=== PATIENT | female | born 1990 | race Hispanic/Latino ===

== ENCOUNTER 2018-12-22 23:49 | Emergency (ER) | payer BC ==
[2018-12-23 00:10] VITALS: TEMP 98.7
[2018-12-23] MEDS ORDERED: Albuterol-Ipratrop 3 mg / 0.5 (3 ml) UD IH STA (00:49)
--- NOTE | 2018-12-23 00:51 | ED PDOC ---
HPI: Chest Pain Time Seen by Provider: 12/23/18 00:23 Chief Complaint (Nursing): Chest Pain Chief Complaint (Provider): chest pain History Per: Patient History/Exam Limitations: no limitations Onset/Duration Of Symptoms: Days (2) Current Symptoms Are (Timing): Still Present Quality: Tightness Exacerbating Factors: Deep Breathing Additional Complaint(s): 28 y/o female presents for evaluation of chest tightness x 2 days. Associated palpitations, shortness of breath, and mild dry cough. Patient denies fever, nausae/vomiting, nasal congestion, leg pain/swelling. +OCP use. +recent flight from [place] 12/14. Patient states chest tightness new for her, which prompted ED visit. Past Medical History Reviewed: Historical Data, Nursing Documentation, Vital Signs Vital Signs: Last Vital Signs Temp 98.7 F 12/23/18 00:07 Pulse 97 H 12/23/18 00:07 Resp 20 12/23/18 00:07 BP 136/89 12/23/18 00:07 Pulse Ox 100 12/23/18 00:07 Primary Care Provider: Quincy Scanlon - Medical History PMH: No Chronic Diseases - Surgical History Surgical History: No Surg Hx - Family History Family History: States: No Known Family Hx - Home Medications Home Medications: Ambulatory Orders Medication Instructions Recorded Albuterol HFA [Ventolin HFA 90 1 puff IH Q4 PRN #1 inh 12/23/18 mcg/actuation (8 g)] - Allergies Allergies/Adverse Reactions: Allergies Allergy/AdvReac Type Severity Reaction Status Date / Time No Known Allergies Allergy Verified 12/23/18 00:07 Review of Systems ROS Statement: Except As Marked, All Systems Reviewed And Found Negative Cardiovascular: Positive for: Chest Pain, Palpitations Respiratory: Positive for: Shortness of Breath Physical Exam - Reviewed Nursing Documentation Reviewed: Yes Vital Signs Reviewed: Yes - Physical Exam Appears: Positive for: Well, Non-toxic, No Acute Distress Head Exam: Positive for: ATRAUMATIC, NORMAL INSPECTION, NORMOCEPHALIC Skin: Positive for: Normal Color Eye Exam: Positive for: Normal appearance ENT: Positive for: Normal ENT Inspection Cardiovascular/Chest: Positive for: Regular Rate, Rhythm Respiratory: Positive for: Normal Breath Sounds Gastrointestinal/Abdominal: Positive for: Normal Exam Back: Positive for: Normal Inspection Extremity: Positive for: Normal ROM Neurological/Psych: Positive for: Awake, Alert, Oriented (x3) - Laboratory Results Result Diagrams: 12/23/18 01:02 12/23/18 01:02 - ECG ECG: Positive for: Viewed By Me (reviewed by ED attending) ECG Rhythm: Positive for: Sinus Tachycardia O2 Sat by Pulse Oximetry: 100 - Progress ED Course And Treament: -upreg -cbc -cmp -troponin -d dimer -duoneb CTA OF THE CHEST WITH IV CONTRAST CLINICAL HISTORY: chest pain. Shortness of breath. TECHNIQUE: Axial and reformatted sagittal and coronal images of the chest obtained after bolus IV contrast administration. FINDINGS: Normal enhancement of the main pulmonary artery and right and left pulmonary arteries. Normal enhancement of the bilateral peripheral pulmonary arteries. There is no demonstrated pulmonary embolism. Normal thoracic aorta and visualized great vessels. There is no demonstrated aortic dissection. Normal heart and pericardium. Normal mediastinum. Normal hilar regions. Normal visualized trachea and bronchi. The lungs are well expanded. Normal pulmonary parenchyma. Normal pleura. Normal chest wall structures. Normal osseous structures. Normal visualized upper abdomen. IMPRESSION: Normal CTA chest examination, without a demonstrated pulmonary embolism or arterial dissection On re-eval, patient resting comfortably; states tightness improved Patient educated on findings, including elevated TSH level, discharged with rx Albuterol HFA Advised follow up PMD within 2-3 days Return precautions given Disposition - Clinical Impression Clinical Impression: Chest tightness, Bronchitis, Elevated TSH - Patient ED Disposition Is Patient to be Admitted: No Counseled Patient/Family Regarding: Studies Performed, Diagnosis, Need For Followup, Rx Given - Disposition Disposition: Routine/Home Disposition Time: 04:40 Condition: IMPROVED Prescriptions: Albuterol HFA [Ventolin HFA 90 mcg/actuation (8 g)] 1 puff IH Q4 PRN #1 inh PRN Reason: chest tightness Instructions: Acute Bronchitis, Chest Pain That Is Not Caused by the Heart (DC), Thyroid Stimulating Hormone Test Forms: [employer] ([place])
[2018-12-23] MEDS ORDERED: Albuterol-Ipratrop 3 mg / 0.5 (3 ml) UD ONE (01:05)
[2018-12-23 01:48] LABS: BASO # 0.1 K/uL (0.0-0.2); EOS # 0.2 K/uL (0.0-0.7); EOS % 3.5 % (0.0-4.0); HEMOGLOBIN 12.7 g/dL (12.0-16.0); LYMPH # 1.9 K/uL (1.0-4.3); LYMPH % 30.4 % (20.0-40.0); MEAN CELL VOLUME 89.9 fl (81.0-99.0); MEAN CORPUSCULAR HEMOGLOBIN 30.5 pg (27.0-31.0); MEAN CORPUSCULAR HGB CONC 33.9 g/dL (33.0-37.0); MEAN PLATELET VOLUME 8.3 fl (7.2-11.7); MONO # 0.6 K/uL (0.0-0.8); MONO % 9.5 % (0.0-10.0); NEUT # 3.5 K/uL (1.8-7.0); NEUT % 55.6 % (50.0-75.0); NRBC % 0.1 % (0.0-0.0); RBC 4.15 Mil/uL (3.80-5.20); RED CELL DISTRIBUTION WIDTH 13.1 % (11.5-14.5); WHITE BLOOD COUNT 6.3 K/uL (4.8-10.8)
[2018-12-23 01:51] LABS: ALB/GLOB RATIO 1.3 (1.0-2.1); ALBUMIN 3.8 g/dL (3.5-5.0); ALT/SGPT 30 U/L (9-52); AST/SGOT 41 U/L (14-36); BLOOD UREA NITROGEN 13 mg/dl (7-17); CALCIUM 8.8 mg/dL (8.4-10.2); GFR NON-AFRICAN AMERICAN > 60
[2018-12-23] MEDS ORDERED: Sodium Chloride 0.9% 50 ML IV ONE (02:59)
[2018-12-23] MEDS ORDERED: Iodixanol 320 MG/ML 100 ML BOTTLE IV ONE (02:59)
[2018-12-23 04:54] VITALS: BP 112/58; PULSE 93; RESP 16; O2SAT 98
--- NOTE | 2018-12-23 09:20 | CARD ---
APPROVED REPORT Date of service: 12/22/2018 EKG Measurement Heart [id number] <Conclusion> Sinus tachycardia Nonspecific T wave abnormality Abnormal ECG
--- NOTE | 2018-12-23 11:23 | CT ---
Date of service: 12/23/2018 PROCEDURE: CT Chest with contrast (Pulmonary Angiogram) HISTORY: chest pain, SOB COMPARISON: None available. TECHNIQUE: Axial computed tomography images were obtained of the chest in the pulmonary arterial phase of enhancement. Coronal and sagittal reformatted images were created and reviewed. Intravenous contrast dose: 90 cc Visipaque 320. Mean Hounsfield value in the main pulmonary artery: 269.46 Radiation dose: Total exam DLP = 318.23 mGy-cm. This CT exam was performed using one or more of the following dose reduction techniques: Automated exposure control, adjustment of the mA and/or kV according to patient size, and/or use of iterative reconstruction technique. FINDINGS: PULMONARY ARTERIES: Unremarkable. No pulmonary embolism. AORTA: No acute findings. No thoracic aortic aneurysm. No atherosclerotic calcification or mural plaque present. LUNGS: Unremarkable. No nodule, mass or pulmonary consolidation. PLEURAL SPACES: Unremarkable. No effusion or pneumothorax. HEART: Unremarkable. No cardiomegaly. No significant pericardial effusion. LYMPH NODES: No lymphadenopathy. BONES, CHEST WALL: Unremarkable. No fracture or destructive lesion OTHER FINDINGS: Unremarkable. IMPRESSION: Unremarkable CT pulmonary angiogram. No pulmonary embolus. Concordant results (preliminary interpretation) provided by [employer]. Procedure Completed: 03:19. Preliminary Report: Interpreted and electronically signed: 04:34. Final Interpretation: 11:19.
== END 2018-12-23 04:55 | disposition home or self-care (01) ==
LOC: H.ER 23:49
DX: R07.9 Chest pain, unspecified (principal); J40 Bronchitis, not specified as acute or chronic; R94.6 Abnormal results of thyroid function studies; Z79.899 Other long term (current) drug therapy
CPT/HCPCS: 71275; 80053; 81025; 84443; 84484; 85025; 85378; 93005; 94640; 99285; Q9967